=== PATIENT | female | born 1995 | race Hispanic/Latino ===

== ENCOUNTER 2024-06-15 07:55 | Emergency (ER) | payer SELFPAY ==
[~2024-06-15] VITALS: Ht 167.6 cm; Wt 142.2 kg
[2024-06-15] MEDS: SODIUM CHLORIDE 0.9% 1000ML 1,000 ML IV STA (09:59)
[2024-06-15] MEDS: KETOROLAC TROMETHAMINE 30 MG/ML VIAL IV STA (10:00)
[2024-06-15] MEDS: ONDANSETRON HCL INJ 2MG/ML 2ML 2 MG/ML VIAL IV STA (10:00)
[2024-06-15] MEDS ORDERED: IOPAMIDOL 370 MG/ML 100 ML INFUS..BTL INJ ONE (10:18)
[2024-06-15] MEDS: KETOROLAC TROMETHAMINE 30 MG/ML VIAL IV ONE (12:36)
[2024-06-15] MEDS ORDERED: CEFDINIR300 MG PO (13:49)
[2024-06-15] MEDS ORDERED: ONDANSETRON HCL4 MG PO (13:50)
[2024-06-15] MEDS ORDERED: ULTRAM 50MG50 MG PO (13:51)
[2024-06-15 14:10] VITALS: PULSE 73; RESP 16; TEMP 98.5; O2SAT 98
== END 2024-06-15 14:10 | disposition home or self-care (01) ==
LOC: FSED 08:06
DX: R30.0 Dysuria (principal); N12 Tubulo-interstitial nephritis, not specified as acute or chronic; R31.29 Other microscopic hematuria; R39.11 Hesitancy of micturition; R10.32 Left lower quadrant pain; N83.202 Unspecified ovarian cyst, left side; E66.01 Morbid (severe) obesity due to excess calories
CPT/HCPCS: 74177; 80048; 80076; 81003; 81025; 85025; 96374; 96375; 96376; 99284; J0696; J1885; J2405; J7030; Q9967

== ENCOUNTER 2024-09-20 17:55 | Emergency (ER) | payer SELFPAY ==
[~2024-09-20] VITALS: Ht 167.6 cm; Wt 142.0 kg
[~2024-09-20 17:55] MED LIST: CEFDINIR300 MG PO; ONDANSETRON HCL4 MG PO; ULTRAM 50MG50 MG PO
[2024-09-20] MEDS: FAMOTIDINE 20 MG/2 ML VIAL IV STA (19:56)
[2024-09-20] MEDS: ONDANSETRON HCL INJ 2MG/ML 2ML 2 MG/ML VIAL IV STA (19:56)
[2024-09-20] MEDS: KETOROLAC TROMETHAMINE 30 MG/ML VIAL IV STA (19:56)
[2024-09-20] MEDS: SODIUM CHLORIDE 0.9% 1000ML 1,000 ML IV ONE (19:56)
[2024-09-20 22:36] VITALS: PULSE 58; RESP 18; TEMP 98.4; O2SAT 95
== END 2024-09-20 22:46 | disposition home or self-care (01) ==
LOC: FSED 18:34
DX: R42 Dizziness and giddiness (principal); R07.89 Other chest pain; I10 Essential (primary) hypertension; E66.01 Morbid (severe) obesity due to excess calories; R94.31 Abnormal electrocardiogram [ECG] [EKG]
CPT/HCPCS: 71046; 80053; 81003; 81025; 85025; 93005; 99284; J1885; J2405; J7030

== ENCOUNTER 2024-10-01 20:13 | Emergency (ER) | payer OTHER ==
[~2024-10-01] VITALS: Ht 165.1 cm; Wt 138.3 kg
[2024-10-01 20:20] VITALS: PULSE 68; RESP 18; TEMP 98.7
[2024-10-01 20:52] VITALS: BP 131/69; PULSE 68; RESP 18; TEMP 98.7; O2SAT 98
== END 2024-10-01 20:52 | disposition home or self-care (01) ==
LOC: FSED 20:46
DX: M79.671 Pain in right foot (principal); M77.51 Other enthesopathy of right foot and ankle; I10 Essential (primary) hypertension; E66.9 Obesity, unspecified
CPT/HCPCS: 99282

== ENCOUNTER 2024-11-23 02:32 | Emergency (ER) | payer OTHER ==
[~2024-11-23] VITALS: Ht 167.6 cm; Wt 142.9 kg
[2024-11-23 02:34] VITALS: TEMP 98.8
[2024-11-23] MEDS ORDERED: LOSARTAN POTASS25 MG PO (02:59)
[2024-11-23] MEDS ORDERED: HYDROCHLOROTHIA25 MG PO (02:59)
[2024-11-23] MEDS ORDERED: LORAZEPAM 1 MG TAB PO ONE (03:00)
[2024-11-23] MEDS ORDERED: CLONIDINE HCL 0.1 MG TAB PO ONE (03:00)
[2024-11-23] MEDS ORDERED: LABETALOL HCL100 MG PO (03:16)
[2024-11-23 04:20] VITALS: PULSE 96; RESP 18
[2024-11-23 04:37] VITALS: BP 166/87; PULSE 82; RESP 18; TEMP 98.8; O2SAT 99
[2024-11-23] MEDS: LABETALOL HCL 5 MG/ML 20ML VIAL IV STA (04:41)
[2024-11-23] MEDS: FAMOTIDINE 20 MG/2 ML VIAL IV ONE (04:41)
== END 2024-11-23 04:37 | disposition home or self-care (01) ==
LOC: FSED 02:48
DX: R07.89 Other chest pain (principal); I10 Essential (primary) hypertension; F41.9 Anxiety disorder, unspecified; E66.01 Morbid (severe) obesity due to excess calories; Z33.1 Pregnant state, incidental
CPT/HCPCS: 80053; 81003; 81025; 82553; 84484; 85025; 85379; 93005; 99283

== ENCOUNTER 2024-12-30 16:57 | Emergency (ER) | payer OTHER ==
[~2024-12-30 16:57] MED LIST changes: +HYDROCHLOROTHIA25 MG PO; +LABETALOL HCL100 MG PO; +LOSARTAN POTASS25 MG PO
[2024-12-30 17:00] VITALS: PULSE 75; RESP 20; TEMP 98.5; O2SAT 95
[2024-12-30] MEDS ORDERED: TYLENOL325 MG PO (17:22)
[2024-12-30] MEDS ORDERED: CEFDINIR300 MG PO (17:22)
== END 2024-12-30 17:28 | disposition home or self-care (01) ==
LOC: FSED 16:58
DX: O23.41 Unspecified infection of urinary tract in pregnancy, first trimester (principal); M54.6 Pain in thoracic spine; I10 Essential (primary) hypertension; E66.9 Obesity, unspecified
CPT/HCPCS: 81003; 81025; 99284